=== PATIENT | female | born 2000 | race Caucasian/White ===

== ENCOUNTER → 2023-10-14 17:24 | Outpatient (REF) | payer BC, SELFPAY | LOC: RAD 17:24 | PROVIDERS: ATTENDING PHYSICIAN Internal Medicine | DX: M25.531 Pain in right wrist (principal) | CPT/HCPCS: 73100 ==

== ENCOUNTER → 2024-04-12 10:48 | Outpatient (REF) | payer BC, SELFPAY | LOC: PNTC 10:48 | PROVIDERS: ATTENDING PHYSICIAN Obstetrics & Gynecology | DX: Z36.0 Encounter for antenatal screening for chromosomal anomalies (principal); Z36.82 Encounter for antenatal screening for nuchal translucency | CPT/HCPCS: 76801; 76813 ==

== ENCOUNTER → 2024-06-06 16:15 | Outpatient (REF) | payer BC, SELFPAY | LOC: PNTC 16:15 | PROVIDERS: ATTENDING PHYSICIAN Obstetrics & Gynecology | DX: Z34.82 Encounter for supervision of other normal pregnancy, second trimester (principal) | CPT/HCPCS: 76805 ==

== ENCOUNTER 2024-09-20 08:34 | Inpatient (IN) | payer BC, SELFPAY ==
[2024-09-20 08:38] VITALS: BP 98/78; BMI 30.2
[2024-09-20] MEDS: LR 1000 IV ×3 (10:50→21:44)
[2024-09-20 11:08] LABS: % Basophils 0.3 % (0-2); % Eosinophils 0.8 % (0-6); % Immature Granulocytes 0.3 % (0-0.5); % Lymphocytes 20.2 % (20.5-51.1); % Neutrophils 68.4 % (42.2-75.2); Absolute Eosinophils 0.1 10^3/uL (0-0.7); Absolute Lymphocytes 1.8 10^3/uL (1.2-3.4); Absolute Monocytes 0.9 10^3/uL (0.1-0.6); Absolute Neutrophils 6.2 10^3/uL (1.4-6.5); Hematocrit 36.3 % (37.0-47.0); Hemoglobin 12.3 g/dL (12.0-16.0); Mean Corp Hgb Conc. 33.9 g/dL (33.0-37.0); Mean Corpuscular Hgb 28.5 pg (27.0-31.0); Mean Platelet Volume 10.8 fL (7.4-10.4); Nucleated Red Blood Cells % 0 %; Platelet Count 162 10^3/uL (130-400); Red Blood Cell Count 4.32 10^6/uL (4.20-5.40)
[2024-09-20] MEDS: PENICILLIN 110 UNITS IV (11:13)
[2024-09-20] MEDS: PENICILLIN 55 UNITS IV ×3 (15:14→23:36)
[2024-09-20] MEDS: SUBLIMAZE 100 MCG EPIDURAL (18:15)
[2024-09-20] MEDS: FENTANYL/BUPIVACAINE 100 EPIDURAL (18:15)
[2024-09-21] MEDS: SENOKOT-S 1 TABLET PO (10:24)
[2024-09-21] MEDS: PRENATAL PLUS 1 TABLET PO (10:24)
[2024-09-22] MEDS: TYLENOL 650 MG PO (02:11)
[2024-09-22] MEDS: MOTRIN 600 MG PO ×2 (02:11→14:06)
[2024-09-22 05:54] LABS: Hematocrit 37.1 % (37.0-47.0); Hemoglobin 11.9 g/dL (12.0-16.0)
[2024-09-22] MEDS: PRENATAL PLUS 1 TABLET PO (08:25)
[2024-09-23] MEDS: TYLENOL 650 MG PO (03:13)
[2024-09-23] MEDS: MOTRIN 600 MG PO (03:13)
[2024-09-23] MEDS: PRENATAL PLUS 1 TABLET PO (10:18)
[2024-09-23 16:37] LABS: Syphilis/T. pallidum Ab Reflex Negative (Negative)
== END 2024-09-23 14:18 | disposition home or self-care (01) | DRG 807 ==
LOC: LDRP 08:34
PROVIDERS: ADMITTING PHYSICIAN Student in an Organized Health Care Education/Training Program
PROC: 0UQMXZZ Repair Vulva, External Approach (ICD-10-PCS; 2024-09-21)
PROC: 10E0XZZ Delivery of Products of Conception, External Approach (ICD-10-PCS; 2024-09-21)
PROC: 10907ZC Drainage of Amniotic Fluid, Therapeutic from Products of Conception, Via Natural or Artificial Opening (ICD-10-PCS; 2024-09-21)
DX: O60.14X0 Preterm labor third trimester with preterm delivery third trimester, not applicable or unspecified (principal); Z37.0 Single live birth; O76 Abnormality in fetal heart rate and rhythm complicating labor and delivery; Z3A.36 36 weeks gestation of pregnancy; O70.0 First degree perineal laceration during delivery
CPT/HCPCS: 88307; 76818; 85014; 85018; 85025; 86780; 86850; 86900; 86901; 87070

== ENCOUNTER 2025-08-23 12:01 | Emergency (ER) | payer BC, SELFPAY ==
[2025-08-23 12:01] VITALS: BMI 28.0
[2025-08-23 12:06] VITALS: BP 107/74
[2025-08-23 12:26] LABS: Hematocrit 39.7 % (37.0-47.0); Hemoglobin 13.4 g/dL (12.0-16.0); Mean Corp Hgb Conc. 33.8 g/dL (33.0-37.0); Mean Corpuscular Volume 85.0 fL (81.0-99.0); Platelet Count 227 10^3/uL (130-400); Red Cell Dist. Width 12.0 % (11.5-14.5)
[2025-08-23 12:51] LABS: HCG, Serum Qualitative Screen Negative
[2025-08-23 12:55] LABS: Absolute Neutrophils -Man Diff 2.3 10^3/uL (1.4-6.5); Normal RBC Morphology Yes; Platelets Checked Yes; Total Cells Counted 100
[2025-08-23 12:58] LABS: ALT (SGPT) 28 U/L (0-35); AST (SGOT) 24 U/L (14-36); Albumin 4.7 g/dl (3.5-5.0); Alkaline Phosphatase 45 U/L (38-126); Blood Urea Nitrogen 16 mg/dl (7-17); Calcium 9.5 mg/dl (8.4-10.2); Carbon Dioxide 29 mmol/L (22-30); Chloride 102 mmol/L (98-107); Glucose 82 mg/dl (70-99); Potassium 4.3 mmol/L (3.5-5.1); Sodium 136 mmol/L (135-145); Total Protein 8.0 g/dl (6.3-8.2); eGFR > 60.00
--- NOTE | 2025-08-23 15:06 | ED.GENMED ---
History of Present Illness
<Johana Aguiar MD, Resident - Last Filed: 08/23/25 16:47>
General
Chief Complaint: Headache
Source: patient and significant other
Exam Limitations: none
Time Seen by Provider: 08/23/25 15:06
Nursing documentation reviewed up to this point in time: agreed with
History of Present Illness
History of Present Illness:
25yo F with no significant PMH who presents w 6 days of HERRING.
Most history obtained from patient's partner, at bedside, who is translating. 6 days ago, patient woke up with a pounding throbbing headache that was bilateral in the forehead, temples, extending around to posterior to ears. Slightly worse on
right side. Pain does not worsen with flexion of neck. Pain slightly worsened with extension of neck. Patient denies any focal weakness or paresthesias. Patient endorses some blurriness of vision in both eyes, which she notices while driving.
Not sure if this is still present. Patient denies any photophobia. Denies any history of migraines in herself or in her family. Has not had a headache like this before. Endorses some nausea but denies vomiting. Denies any tearing of eyes or
rhinorrhea. Denies any fevers, however notes that 2 children at home this past week had a likely viral illness with fever and rash. Denies any substance use, denies any changes to medications, denies any preceding sleep or changes to p.o. intake.
Has been taking ibuprofen 2 pills 2 times daily for the last 6 days, it stopped helping about 2 to 3 days ago. Family doctor recommended that they come into the ED.
Review of Systems
<Johana Aguiar MD, Resident - Last Filed: 08/23/25 16:47>
Review of Systems
All Other Systems: ROS reviewed and negative except as documented in HPI and ROS
Constitutional: Reports sleep disturbance
EENT: Reports no symptoms
Respiratory: Reports no symptoms
Cardiac: Reports no symptoms
ABD/GI: Reports nausea
: Reports no symptoms
Musculoskeletal: Reports no symptoms
Skin: Reports no symptoms
Neurological: Reports headache
Endocrine: Reports no symptoms
Psychiatric: Reports no symptoms
Phy Exam
<Johana Aguiar MD, Resident - Last Filed: 08/23/25 16:47>
General Physical Exam
General Presentation: no apparent distress
General age: appears stated age
General Skin: warm and dry
General Habitus: normal
General Mental: alert
General Hydration: appears well hydrated
ENT Exam
ENT Exam: EOMI
Eye Exam
Eye Exam: PERRL and EOMI
Cardiovascular Exam
Cardiovascular Exam: regular rate/rhythm and no edema
Pulmonary Exam
Pulmonary Exam: no respiratory distress
Gastrointestinal Exam
Gastrointestinal Exam: non distended
Neurological Exam
Neurological Exam: alert, oriented x3, CN II-XII intact, no motor deficits and other (no pain w neck flexion)
Musculoskeletal Exam
Musculoskeletal Exam: full ROM
Skin Exam
Skin Exam: normal color and warm/dry
Psychiatric Exam
Psychiatric Exam: normal mood/affect
Course
<Johana Aguiar MD, Resident - Last Filed: 08/23/25 16:47>
Orders/Labs/Results
Orders:
Orders
08/23/25 12:08
Test Result ONCE
08/23/25 12:11
Complete Blood Count/With Diff Urgent
Comprehensive Metabolic Panel Urgent
HCG, Serum Qualitative Screen Urgent
Manual Differential Urgent
08/23/25 15:41
Butalb/Acetaminophen/Caffeine [Fioricet] 1 tab PO NOW STA
08/23/25 12:11
08/23/25 12:11
Vital Signs
Initial and Last Documented VS:
Initial Vital Signs
Temp Pulse Resp BP Pulse Ox
98.0 F 85 16 107/74 100
08/23/25 12:06 08/23/25 12:06 08/23/25 12:06 08/23/25 12:06 08/23/25 12:06
Last Documented Vital Signs
Temp Pulse Resp BP Pulse Ox
98.0 F 85 16 107/74 100
08/23/25 12:06 08/23/25 12:06 08/23/25 12:06 08/23/25 12:06 08/23/25 15:26
<Robert Sarmiento, DO - Last Filed: 08/23/25 16:43>
Orders/Labs/Results
Orders:
Orders
08/23/25 12:08
Test Result ONCE
08/23/25 12:11
Complete Blood Count/With Diff Urgent
Comprehensive Metabolic Panel Urgent
HCG, Serum Qualitative Screen Urgent
Manual Differential Urgent
08/23/25 15:41
Butalb/Acetaminophen/Caffeine [Fioricet] 1 tab PO NOW STA
08/23/25 12:11
08/23/25 12:11
Vital Signs
Initial and Last Documented VS:
Initial Vital Signs
Temp Pulse Resp BP Pulse Ox
98.0 F 85 16 107/74 100
08/23/25 12:06 08/23/25 12:06 08/23/25 12:06 08/23/25 12:06 08/23/25 12:06
Last Documented Vital Signs
Temp Pulse Resp BP Pulse Ox
98.0 F 85 16 107/74 100
08/23/25 12:06 08/23/25 12:06 08/23/25 12:06 08/23/25 12:06 08/23/25 15:26
<Johana Aguiar MD, Resident - Last Filed: 08/23/25 16:47>
MDM/Problems Addressed
Differential Diagnosis Includes:
Ddx:
Migraine vs. tension headache -most likely given distribution, nausea, throbbing quality
Less likey:
Aseptic meningitis -no nuchal rigidity, WBC normal, no headache; however, recent exposure to sick kids at home
Idiopathic intracranial hypertension (pseudotumor cerebri) -although patient without vomiting, normal BMI
CVA - unlikely given no focal neurosymptoms (blurry vision while driving likely secondary to lack of sleep with headache and migrainous symptoms), although patient notes worst headache/has not had a headache like this before
Mass - less likely given sudden onset, no focal neuro sx
MDM/Problems Addressed:
- Fioricet
- Will defer CT head, unless does not improve with fioricet
- CBC, CMP, test
<Johana Aguiar MD, Resident - Last Filed: 08/23/25 16:47>
*Pulse Oximetry
SaO2: 100
Oxygen Mode of Delivery: Room air
Patient hypoxic: no
*Critical Care Note
Total Time (30-74mins, 75-104mins- exclusive of procedures): Not Applicable
<Robert Sarmiento DO - Last Filed: 08/23/25 16:43>
Update Note
Update Note:
4:40 PM patient feeling much better after Fioricet and feels comfortable going home. Discussed outpatient MRI if symptoms
ED Attending Note
<Johana Aguiar MD, Resident - Last Filed: 08/23/25 16:47>
-
Portions of this chart may have been created with voice recognition software.� Occasional wrong word or��sound alike� substitutions may have occurred due to the inherent limitations of voice recognition software.
<Robert Sarmiento DO - Last Filed: 08/23/25 16:43>
ED Attending Note
Patient seen and examined by attending physician: Yes
I performed a history and physical exam of patient and discussed management with resident, I reviewed resident's note and agree with documented findings and plan of care.: Yes
ED Attending Note:
I have seen and evaluated the patient with a [id number] encounter. I have spoken to the resident and involved in the medical history, the physical exam, medical decision making.
Evaluation and management service: agree unless noted differently below.
Results interpretation: agree unless noted differently below.
Focused HPI: 25-year-old female presenting with headache for the past 6 days. Motrin has been ineffective. Patient is concerned because she has been unable to sleep.
Physical exam: Sitting in bed comfortably. No acute distress. No focal neurodeficits. EOMI. No tenderness to palpation of temporal artery
Medical Decision Making: Given extremely well-appearing she is currently discussed low yield for CT head. Blood work without acute abnormalities. Will give dose of Fioricet continue to reassess given the likelihood of tension versus migraine. If
imaging is indicated, we discussed having this discussion with the PCP outpatient setting to discuss MRI rather than
Discharge Plan
Departure
Patient Disposition: Home (Routine Discharge)
Date of Disposition: 08/23/25
Time of Disposition: 16:43
Patient with high blood pressure during this ER visit?: No
Condition: Good
Covid-19: Not Applicable
Discharge Problem:
Acute tension headache
Prescriptions:
New
dyegwfnzhu-lxxuutxjdibkr-tgon [Fioricet] 50-300-40 mg capsule
1 cap PO BID PRN (Reason: Headache) Qty: 10 0RF
No Action
prenat.vits,varun,vhh-hlnq-cjsky Tablet
1 tab PO DAILY
acetaminophen 325 mg Tablet
650 mg PO Q4HPRN PRN (Reason: mild pain) Qty: 0 0RF
ibuprofen 600 mg Tablet
600 mg PO Q6HPRN PRN (Reason: moderate pain/cramps) Qty: 0 0RF
Referrals:
UNKNOWN - PT DOES,NOT KNOW [Family Provider]
Activity Restrictions/Additional Instructions:
You were seen in the ED today for headache. You are given a medication called Fioricet, which helped with your symptoms. We are prescribing you this medication to take at home if you have additional headaches. Follow the instructions on the
prescription (you may take 1 capsule twice daily). This medication may make you feel sleepy.
Please follow-up outpatient for an MRI of the brain if there is worsening of your symptoms or your headache does not get better with using the Fioricet at home. Please return to the ED if you have sudden severe worsening of your symptoms accompanied
by vision loss acute weakness or numbness in any part of body.
Interventions
Interventions:
*Risk Screen - Suicide Last Done: 08/23/25 12:06
*General Assessment Last Done: 08/23/25 12:06
*ED COVID-19 Vaccine History Last Done: 08/23/25 12:06
*ED Influenza Vaccine History Last Done: 08/23/25 12:06
[facility] Fall Risk Assessment Tool Last Done: 08/23/25 12:01
Discharge Date and Time
Print Language: Ukranian
[2025-08-23 16:00] VITALS: BP 124/78
[2025-08-23] MEDS: FIORICET 1 TAB PO (16:00)
== END 2025-08-23 16:58 | disposition home or self-care (01) ==
LOC: EMR 12:01
PROVIDERS: Emergency Medicine; EMERGENCY PHYSICIAN Student in an Organized Health Care Education/Training Program
DX: G44.209 Tension-type headache, unspecified, not intractable (principal)
CPT/HCPCS: 99283; 80053; 84703; 85025